=== PATIENT | female | born 1960 | race Native Hawaiian/Other Pacific Islander ===

== ENCOUNTER 2016-11-04 21:17 | Emergency (ER) | payer OTHER ==
[~2016-11-04] VITALS: Ht 167.6 cm; Wt 127.0 kg
[~2016-11-04 21:17] MED LIST: ACID REDUCER10 M1 PO; DULO60CA2 PO; FURO40TA93 PO; KLOR-CON M2020 MEQ PO; XALATAN0.005 % OP
[2016-11-04 23:12] VITALS: BP 138/76; TEMP 97.7
== END 2016-11-04 23:12 | disposition home or self-care (01) ==
LOC: ED 21:17
DX: B02.9 Zoster without complications (principal)
CPT/HCPCS: 96372; 99283; J2175; J2405; J2550

== ENCOUNTER 2017-03-25 08:23 | Outpatient (CLI) | payer OTHER | END 2017-03-25 09:30 | disposition home or self-care (01) | LOC: LABW 08:23 | PROVIDERS: Specialist | DX: I25.10 Atherosclerotic heart disease of native coronary artery without angina pectoris (principal); E78.2 Mixed hyperlipidemia | CPT/HCPCS: 36415; 80061; 80076 ==

== ENCOUNTER 2017-08-10 08:30 | Outpatient (CLI) | payer OTHER ==
[2017-08-10 09:14] LABS: PLATELET COUNT 213 K/uL (152-353)
[2017-08-10 09:20] LABS: POTASSIUM 4.1 mmol/L (3.6-5.2); SODIUM 141 mmol/L (136-145)
== END 2017-08-10 21:34 | disposition home or self-care (01) ==
LOC: LABW 08:30 → MAMMO 08:30 → LABW 21:34
PROVIDERS: Plastic Surgery Plastic Surgery Within the Head and Neck
DX: Z12.31 Encounter for screening mammogram for malignant neoplasm of breast (principal); Z01.812 Encounter for preprocedural laboratory examination; Z01.818 Encounter for other preprocedural examination; Z01.811 Encounter for preprocedural respiratory examination
CPT/HCPCS: 36415; 80048; 85027; 93005

== ENCOUNTER 2017-08-30 11:51 | Observation (INO) | payer OTHER ==
[~2017-08-30] VITALS: Ht 167.6 cm; Wt 133.8 kg
[2017-08-30 13:49] LABS: PLATELET COUNT 237 K/uL (152-353)
[2017-08-30 14:03] LABS: POTASSIUM 3.7 mmol/L (3.6-5.2)
[2017-08-30 14:35] VITALS: BP 145/76; TEMP 98.6; Ht 167.6 cm; Wt 133.8 kg
[2017-08-30] MEDS ORDERED: CLIN300C PO (15:35)
[2017-08-30] MEDS ORDERED: PREG50CA PO (15:36)
[2017-08-30] MEDS ORDERED: LATANOPROST0.005 % OP (15:37)
[2017-08-30] MEDS ORDERED: MELOXICAM15 MG OR (15:38)
[2017-08-30] MEDS ORDERED: TRIA0.1C19 TOP (15:41)
[2017-08-30] MEDS ORDERED: ISOS30TA17 PO (15:43)
[2017-08-30] MEDS ORDERED: HYDR10TA47 PO (15:43)
[2017-08-30] MEDS ORDERED: PRAVACHOL20 MG PO (15:45)
[2017-08-30] MEDS ORDERED: FLUTICASONE50 MCG (15:46)
[2017-08-30 16:00] VITALS: BP 145/76; TEMP 98.6
[2017-08-30 20:00] VITALS: BP 107/61; TEMP 98.9
[2017-08-31] VITALS: BP 129/77; TEMP 97.9
[2017-08-31 04:00] VITALS: BP 104/50; TEMP 97.8
[2017-08-31 06:14] LABS: PLATELET COUNT 219 K/uL (152-353)
[2017-08-31 06:32] LABS: POTASSIUM 3.9 mmol/L (3.6-5.2)
[2017-08-31 08:00] VITALS: BP 106/57; TEMP 98
[2017-08-31 11:58] VITALS: BP 133/59; TEMP 97.7
[2017-08-31 16:00] VITALS: BP 124/70; TEMP 97.8
== END 2017-08-31 20:05 | disposition home or self-care (01) ==
LOC: MED/SURG 11:51
PROVIDERS: ADMIT Family Medicine
DX: N20.0 Calculus of kidney (principal); N61.0 Mastitis without abscess; R50.81 Fever presenting with conditions classified elsewhere; J11.1 Influenza due to unidentified influenza virus with other respiratory manifestations
CPT/HCPCS: 36415; 36591; 80053; 83735; 85027; 87040; 87804; 96365; 96366; 96367; 99220; G0378; G0379

== ENCOUNTER 2018-09-20 08:00 | Emergency (ER) | payer OTHER ==
[~2018-09-20] VITALS: Ht 167.6 cm; Wt 122.9 kg
[~2018-09-20 08:00] MED LIST changes: +CLIN300C PO; +FLUTICASONE50 MCG; +HYDR10TA47 PO; +ISOS30TA17 PO; +LATANOPROST0.005 % OP; +MELOXICAM15 MG OR; +PRAVACHOL20 MG PO; +PREG50CA PO; +TRIA0.1C19 TOP
[2018-09-20 08:20] VITALS: TEMP 98.5
[2018-09-20 10:15] VITALS: BP 148/89
== END 2018-09-20 10:15 | disposition home or self-care (01) ==
LOC: ED 08:00
DX: S16.1XXA Strain of muscle, fascia and tendon at neck level, initial encounter (principal); S46.812A Strain of other muscles, fascia and tendons at shoulder and upper arm level, left arm, initial encounter; S46.811A Strain of other muscles, fascia and tendons at shoulder and upper arm level, right arm, initial encounter; V89.0XXA Person injured in unspecified motor-vehicle accident, nontraffic, initial encounter; Y92.89 Other specified places as the place of occurrence of the external cause
CPT/HCPCS: 99283

== ENCOUNTER 2018-11-22 18:15 | Emergency (ER) | payer OTHER ==
[~2018-11-22] VITALS: Ht 167.6 cm; Wt 121.1 kg
[2018-11-22 19:24] LABS: PLATELET COUNT 193 K/uL (152-353)
[2018-11-22 19:34] LABS: POTASSIUM 4.1 mmol/L (3.6-5.2)
[2018-11-22 20:30] VITALS: BP 133/81; TEMP 98
== END 2018-11-22 20:30 | disposition home or self-care (01) ==
LOC: ED 18:15
PROVIDERS: Emergency Medicine
DX: N39.0 Urinary tract infection, site not specified (principal); N30.81 Other cystitis with hematuria
CPT/HCPCS: 36415; 80053; 81000; 85027; 87088; 96365; 96374; 99284; J1885

== ENCOUNTER 2019-01-10 08:35 | Day surgery (SDC) | payer OTHER | END 2019-01-10 09:45 | disposition home or self-care (01) | LOC: OR 08:35 | PROC: 3E0T3TZ Introduction of Destructive Agent into Peripheral Nerves and Plexi, Percutaneous Approach (ICD-10-PCS; principal; 2019-01-10) | PROC: BR16YZZ Fluoroscopy of Lumbar Facet Joint(s) using Other Contrast (ICD-10-PCS; 2019-01-10) | DX: M47.817 Spondylosis without myelopathy or radiculopathy, lumbosacral region (principal) | CPT/HCPCS: J2001 ==

== ENCOUNTER 2019-06-11 08:19 | Outpatient (CLI) | payer OTHER | END 2019-06-11 19:20 | disposition home or self-care (01) | LOC: RAD 08:19 | DX: M47.817 Spondylosis without myelopathy or radiculopathy, lumbosacral region (principal) ==

== ENCOUNTER 2019-09-18 08:38 | Day surgery (SDC) | payer OTHER | END 2019-09-18 10:15 | disposition home or self-care (01) | LOC: OR 08:38 | PROC: 3E0T3BZ Introduction of Anesthetic Agent into Peripheral Nerves and Plexi, Percutaneous Approach (ICD-10-PCS; principal; 2019-09-18) | PROC: BW1CYZZ Fluoroscopy of Lower Extremity using Other Contrast (ICD-10-PCS; 2019-09-18) | DX: M25.562 Pain in left knee (principal); M17.12 Unilateral primary osteoarthritis, left knee | CPT/HCPCS: J2001 ==

== ENCOUNTER 2019-12-03 19:09 | Outpatient (CLI) | payer OTHER ==
[2019-12-03 20:05] LABS: PLATELET COUNT 224 K/uL (152-353)
[2019-12-03 20:17] LABS: POTASSIUM 4.2 mmol/L (3.6-5.2)
== END 2019-12-03 19:41 | disposition home or self-care (01) ==
LOC: LABW 19:09
PROVIDERS: Family Medicine
DX: J02.9 Acute pharyngitis, unspecified (principal); R59.0 Localized enlarged lymph nodes; Z20.828 Contact with and (suspected) exposure to other viral communicable diseases; R30.0 Dysuria; B37.0 Candidal stomatitis
CPT/HCPCS: 36415; 80053; 81000; 85027; 86308; 87651

== ENCOUNTER 2020-02-19 08:24 | Day surgery (SDC) | payer OTHER ==
[~2020-02-19] VITALS: Ht 2.5 cm; Wt 0.0 kg
== END 2020-02-19 10:58 | disposition home or self-care (01) ==
LOC: OR 08:24
PROC: 3E0T3BZ Introduction of Anesthetic Agent into Peripheral Nerves and Plexi, Percutaneous Approach (ICD-10-PCS; principal; 2020-02-19)
DX: M25.562 Pain in left knee (principal); M17.12 Unilateral primary osteoarthritis, left knee
CPT/HCPCS: J2001

== ENCOUNTER 2020-02-22 13:01 | Outpatient (CLI) | payer OTHER | END 2020-02-22 23:06 | disposition home or self-care (01) | LOC: LAB 13:01 | PROVIDERS: ATTEND Family Medicine | DX: Z20.828 Contact with and (suspected) exposure to other viral communicable diseases (principal) | CPT/HCPCS: 87635; G2023; U0003 ==

== ENCOUNTER 2020-03-10 14:44 | Outpatient (CLI) | payer OTHER ==
[2020-03-10 15:26] LABS: PLATELET COUNT 189 K/uL (152-353)
[2020-03-10 15:45] LABS: POTASSIUM 4.1 mmol/L (3.6-5.2)
== END 2020-03-10 22:30 | disposition home or self-care (01) ==
LOC: LABW 14:44
PROVIDERS: Family Medicine
DX: N39.0 Urinary tract infection, site not specified (principal); R53.83 Other fatigue; Z20.2 Contact with and (suspected) exposure to infections with a predominantly sexual mode of transmission; B37.3 Candidiasis of vulva and vagina; Z83.3 Family history of diabetes mellitus; K21.9 Gastro-esophageal reflux disease without esophagitis; Z79.899 Other long term (current) drug therapy
CPT/HCPCS: 36415; 80053; 80061; 80074; 81000; 83036; 83735; 84439; 84443; 85027; 87077; 87086; 87088; 87186; 87535; G0432

== ENCOUNTER 2020-05-20 08:05 | Day surgery (SDC) | payer OTHER | END 2020-05-20 09:45 | disposition home or self-care (01) | LOC: OR 08:05 | PROC: 3E0T3TZ Introduction of Destructive Agent into Peripheral Nerves and Plexi, Percutaneous Approach (ICD-10-PCS; principal; 2020-05-20) | DX: M25.562 Pain in left knee (principal); M17.12 Unilateral primary osteoarthritis, left knee | CPT/HCPCS: J2001 ==

== ENCOUNTER 2020-06-05 10:34 | Outpatient (CLI) | payer OTHER | END 2020-06-05 23:13 | disposition home or self-care (01) | LOC: CT 10:34 | DX: R31.0 Gross hematuria (principal) ==

== ENCOUNTER 2020-06-27 12:28 | Outpatient (CLI) | payer OTHER | END 2020-06-27 19:37 | disposition home or self-care (01) | LOC: LAB 12:28 | PROVIDERS: ATTEND Family Medicine | DX: Z20.828 Contact with and (suspected) exposure to other viral communicable diseases (principal) | CPT/HCPCS: 87635; G2023; U0003 ==

== ENCOUNTER 2020-09-12 12:43 | Outpatient (CLI) | payer OTHER | END 2020-09-12 19:36 | disposition home or self-care (01) | LOC: LAB 12:43 | PROVIDERS: ATTEND Family Medicine | DX: R06.89 Other abnormalities of breathing (principal); R05 Cough; Z20.828 Contact with and (suspected) exposure to other viral communicable diseases; R50.9 Fever, unspecified | CPT/HCPCS: 87635; G2023; U0003 ==

== ENCOUNTER 2020-09-16 10:44 | Outpatient (CLI) | payer OTHER | END 2020-09-16 23:01 | disposition home or self-care (01) | LOC: RAD 10:44 | PROVIDERS: ATTEND Family Medicine | DX: R06.89 Other abnormalities of breathing (principal); R05 Cough; Z20.828 Contact with and (suspected) exposure to other viral communicable diseases; R50.9 Fever, unspecified ==

== ENCOUNTER 2021-02-17 14:00 | Outpatient (CLI) | payer OTHER | END 2021-02-17 22:37 | disposition home or self-care (01) | LOC: MAMMO 14:00 | PROVIDERS: ATTEND Family Medicine | DX: Z12.31 Encounter for screening mammogram for malignant neoplasm of breast (principal); N95.1 Menopausal and female climacteric states ==

== ENCOUNTER 2021-03-05 08:37 | Outpatient (CLI) | payer OTHER | END 2021-03-05 22:03 | disposition home or self-care (01) | LOC: LAB 08:37 | PROVIDERS: ATTEND Family Medicine | DX: Z20.822 Contact with and (suspected) exposure to COVID-19 (principal) | CPT/HCPCS: 87635; G2023; U0003 ==

== ENCOUNTER 2021-04-08 07:42 | Outpatient (CLI) | payer OTHER | END 2021-04-08 23:00 | disposition home or self-care (01) | LOC: LAB 07:42 | PROVIDERS: ATTEND Family Medicine | DX: J02.9 Acute pharyngitis, unspecified (principal); R52 Pain, unspecified; Z20.822 Contact with and (suspected) exposure to COVID-19 | CPT/HCPCS: 87635; G2023; U0003 ==

== ENCOUNTER 2021-04-24 11:21 | Outpatient (CLI) | payer OTHER | END 2021-04-24 19:19 | disposition home or self-care (01) | LOC: LAB 11:21 | PROVIDERS: ATTEND Family Medicine | DX: U07.1 COVID-19 (principal); Z20.822 Contact with and (suspected) exposure to COVID-19; R05 Cough; R50.9 Fever, unspecified | CPT/HCPCS: 87635; G2023; U0003 ==

== ENCOUNTER 2021-04-28 10:56 | Outpatient (CLI) | payer OTHER ==
[~2021-04-28] VITALS: Ht 167.6 cm; Wt 127.9 kg
== END 2021-04-28 20:10 | disposition home or self-care (01) ==
LOC: INF 10:56
PROVIDERS: ATTEND Internal Medicine Endocrinology, Diabetes & Metabolism
DX: Z23 Encounter for immunization (principal); U07.1 COVID-19
CPT/HCPCS: 96365; M0244

== ENCOUNTER 2021-08-14 08:33 | Outpatient (CLI) | payer OTHER | END 2021-08-14 22:59 | disposition home or self-care (01) | LOC: LAB 08:33 | PROVIDERS: ATTEND Family Medicine | DX: Z20.822 Contact with and (suspected) exposure to COVID-19 (principal); R05.9 Cough, unspecified; R50.9 Fever, unspecified | CPT/HCPCS: 87635; U0003 ==

== ENCOUNTER 2022-08-26 09:27 | Outpatient (CLI) | payer OTHER | END 2022-08-26 18:57 | disposition home or self-care (01) | LOC: CT 09:27 | PROVIDERS: ATTEND Internal Medicine Endocrinology, Diabetes & Metabolism | DX: R20.0 Anesthesia of skin (principal); I63.9 Cerebral infarction, unspecified; G44.52 New daily persistent headache (NDPH) ==

== ENCOUNTER 2023-04-01 08:48 | Outpatient (CLI) | payer OTHER ==
[2023-04-01 09:55] LABS: PLATELET COUNT 197 K/uL (152-353)
[2023-04-01 10:37] LABS: POTASSIUM 4.2 mmol/L (3.6-5.2)
== END 2023-04-01 18:58 | disposition home or self-care (01) ==
LOC: LABW 08:48
PROVIDERS: ATTEND Nurse Practitioner Family
DX: Z00.00 Encounter for general adult medical examination without abnormal findings (principal); F34.1 Dysthymic disorder; G89.4 Chronic pain syndrome; Z68.41 Body mass index [BMI] 40.0-44.9, adult; R53.83 Other fatigue; Z79.899 Other long term (current) drug therapy
CPT/HCPCS: 36415; 80053; 80074; 82306; 82607; 83036; 84436; 84443; 84479; 85027; 86701; 86702; 87389; 87529

== ENCOUNTER 2023-05-23 09:04 | Outpatient (CLI) | payer OTHER | END 2023-05-23 19:14 | disposition home or self-care (01) | LOC: MAMMO 09:04 | PROVIDERS: ATTEND Nurse Practitioner Family | DX: Z12.31 Encounter for screening mammogram for malignant neoplasm of breast (principal) ==